=== PATIENT | male | born 1940 | race Caucasian/White ===

== ENCOUNTER → 2017-11-07 | Outpatient (CLI) | payer OTHER | END | disposition home or self-care (01) | LOC: TOM 10:34 | DX: J44.1 Chronic obstructive pulmonary disease with (acute) exacerbation (principal) ==

== ENCOUNTER → 2017-11-28 | Outpatient (CLI) | payer OTHER | END | disposition home or self-care (01) | LOC: MRI 08:15 → TOM 08:15 → MRI 10:15 | DX: M25.551 Pain in right hip (principal); M25.552 Pain in left hip; M54.5 Low back pain | CPT/HCPCS: 72148; 73721 ==

== ENCOUNTER 2018-03-25 15:00 | Inpatient (IN) | payer OTHER ==
[~2018-03-25] VITALS: Ht 177.8 cm; Wt 95.3 kg
[2018-03-25] MEDS ORDERED: LEVALBUTER1.25 MG/0. IH (15:20)
[2018-03-25] MEDS ORDERED: BUDESONIDE0.25 MG/2 IH (15:21)
[2018-03-25] MEDS ORDERED: MESALAMINE800 MG PO (15:21)
[2018-03-25] MEDS ORDERED: BREO ELLIPTA 21 EACH IH (15:21)
[2018-03-28] MEDS ORDERED: LIPITOR40 MG PO (10:20)
[2018-03-28] MEDS ORDERED: BENZONATATE200 M1 PO (10:21)
[2018-03-28] MEDS ORDERED: LOSARTAN-HCTZ1 EAC2 PO (10:21)
[2018-03-28] MEDS ORDERED: TOPROL XL25 M1 PO (10:23)
[2018-03-28] MEDS ORDERED: CARdura 2MG TABLET PO (10:23)
[2018-03-28] MEDS ORDERED: MEDROL4 MG PO (10:24)
[2018-03-28] MEDS ORDERED: XOPENEX CO1.25 MG/0. IH (10:25)
[2018-03-28] MEDS ORDERED: BREO ELLIPTA 21 EACH IH (10:26)
== END 2018-03-28 11:25 | disposition home or self-care (01) | DRG 190 ==
LOC: ER 15:00 → MEDI 17:47
PROC: 3E0F7GC Introduction of Other Therapeutic Substance into Respiratory Tract, Via Natural or Artificial Opening (ICD-10-PCS; principal; 2018-03-25)
PROC: 4A033R1 Measurement of Arterial Saturation, Peripheral, Percutaneous Approach (ICD-10-PCS; 2018-03-25)
PROC: 4A12X4Z Monitoring of Cardiac Electrical Activity, External Approach (ICD-10-PCS; 2018-03-25)
PROC: B246ZZZ Ultrasonography of Right and Left Heart (ICD-10-PCS; 2018-03-25)
PROC: BW24ZZZ Computerized Tomography (CT Scan) of Chest and Abdomen (ICD-10-PCS; 2018-03-26)
DX: J44.1 Chronic obstructive pulmonary disease with (acute) exacerbation (principal); I50.33 Acute on chronic diastolic (congestive) heart failure; N17.8 Other acute kidney failure; I13.0 Hypertensive heart and chronic kidney disease with heart failure and stage 1 through stage 4 chronic kidney disease, or unspecified chronic kidney disease; Z72.0 Tobacco use; E66.8 Other obesity; G47.33 Obstructive sleep apnea (adult) (pediatric); E09.22 Drug or chemical induced diabetes mellitus with diabetic chronic kidney disease; T38.0X5A Adverse effect of glucocorticoids and synthetic analogues, initial encounter; N18.3 Chronic kidney disease, stage 3 (moderate); E78.4 Other hyperlipidemia

== ENCOUNTER 2018-06-17 15:15 | Emergency (ER) | payer OTHER ==
[~2018-06-17] VITALS: Ht 170.2 cm; Wt 95.3 kg
[~2018-06-17 15:15] MED LIST: BENZONATATE200 M1 PO; BREO ELLIPTA 21 EACH IH; BUDESONIDE0.25 MG/2 IH; CARdura 2MG TABLET PO; LEVALBUTER1.25 MG/0. IH; LIPITOR40 MG PO; LOSARTAN-HCTZ1 EAC2 PO; MEDROL4 MG PO; MESALAMINE800 MG PO; TOPROL XL25 M1 PO; XOPENEX CO1.25 MG/0. IH
== END 2018-06-17 21:30 | disposition home or self-care (01) ==
LOC: ER 15:15 → CPU-OBS 15:27 → ER 21:30
DX: R07.89 Other chest pain (principal)
CPT/HCPCS: G0378; G0379; 93005

== ENCOUNTER 2018-10-22 10:54 | Emergency (ER) | payer OTHER ==
[~2018-10-22] VITALS: Ht 170.2 cm; Wt 90.7 kg
[2018-10-22] MEDS ORDERED: ULTRACET PO (15:30)
== END 2018-10-22 16:12 | disposition home or self-care (01) ==
LOC: ER 10:54
DX: K57.92 Diverticulitis of intestine, part unspecified, without perforation or abscess without bleeding (principal); K59.09 Other constipation

== ENCOUNTER 2018-11-15 11:53 | Inpatient (IN) | payer OTHER ==
[~2018-11-15] VITALS: Ht 177.8 cm; Wt 95.3 kg
[~2018-11-15 11:53] MED LIST changes: +ULTRACET PO
--- NOTE | 2018-11-15 11:57 | NUR ---
PTE ALERTA Y ORIENTADO X 3 ESFERAS QUIEN REFIERE DOLOR DE PECHO EN LADO RT DESDE HACE 4 YOUNG,FALTA DE APETITO Y DIARREAS DESDE HACE 6 MESES POR COLITIS.
[2018-11-15] MEDS ORDERED: ALPHAGAN P5 ML (12:01)
--- NOTE | 2018-11-15 12:15 | NUR ---
SE REALIZA EKG Y SE MUESTRA A DR BAUTISTA.
--- NOTE | 2018-11-15 12:55 | NUR ---
EVALUADO POR EL SE ORIENTA SOBRE TRATAMIENTO MEDICO Y LA UNIDAD , ALERTA, ORIENTADO POR FEI. CONECTADO A MONITOR CARDIACO. SE LE EXTRAEN MUESTRAS DE [facility] Y SE ENVIAN AL LABORATORIO. SE MANTIENE EN OBSERVACION.
[2018-11-17] MEDS ORDERED: MESALAMINE800 MG PO (09:16)
[2018-11-17] MEDS ORDERED: LEVALBUTER1.25 MG/3 IH (09:16)
[2018-11-17] MEDS ORDERED: MESALAMINE4 GM/60 M1 (09:17)
[2018-11-17] MEDS ORDERED: RELPAX40 MG PO (09:18)
== END 2018-11-21 13:48 | disposition home or self-care (01) | DRG 194 ==
LOC: ER 11:53 → MEDJ 18:56
PROVIDERS: ADMIT Internal Medicine
PROC: BW24ZZZ Computerized Tomography (CT Scan) of Chest and Abdomen (ICD-10-PCS; principal; 2018-11-16)
PROC: BW28ZZZ Computerized Tomography (CT Scan) of Head (ICD-10-PCS; 2018-11-18)
PROC: BW40ZZZ Ultrasonography of Abdomen (ICD-10-PCS; 2018-11-20)
DX: J18.1 Lobar pneumonia, unspecified organism (principal); J44.1 Chronic obstructive pulmonary disease with (acute) exacerbation; K51.80 Other ulcerative colitis without complications; N17.8 Other acute kidney failure; I12.9 Hypertensive chronic kidney disease with stage 1 through stage 4 chronic kidney disease, or unspecified chronic kidney disease; N18.3 Chronic kidney disease, stage 3 (moderate); D72.828 Other elevated white blood cell count; M51.26 Other intervertebral disc displacement, lumbar region; K57.30 Diverticulosis of large intestine without perforation or abscess without bleeding; E78.49 Other hyperlipidemia; E11.319 Type 2 diabetes mellitus with unspecified diabetic retinopathy without macular edema; E66.8 Other obesity; G47.33 Obstructive sleep apnea (adult) (pediatric); Z72.0 Tobacco use

== ENCOUNTER 2018-12-31 10:18 | Outpatient (CLI) | payer OTHER ==
[~2018-12-31 10:18] MED LIST changes: +ALPHAGAN P5 ML; +LEVALBUTER1.25 MG/3 IH; +MESALAMINE4 GM/60 M1; +RELPAX40 MG PO
== END 2018-12-31 17:00 | disposition home or self-care (01) ==
LOC: MRI 10:18
DX: M54.17 Radiculopathy, lumbosacral region (principal)
CPT/HCPCS: 72148

== ENCOUNTER 2019-02-27 10:05 | Outpatient (CLI) | payer OTHER | END 2019-02-27 13:22 | disposition home or self-care (01) | LOC: MRI 10:05 | DX: M25.551 Pain in right hip (principal); M25.552 Pain in left hip; M54.5 Low back pain | CPT/HCPCS: 72148; 73718 ==

== ENCOUNTER 2019-03-06 09:33 | Outpatient (CLI) | payer OTHER | END 2019-03-06 10:48 | disposition home or self-care (01) | LOC: RAD 09:33 | DX: M54.5 Low back pain (principal) ==

== ENCOUNTER → 2019-03-06 15:29 | Outpatient (CLI) | payer OTHER | END | disposition home or self-care (01) | LOC: LAB 15:29 | DX: E11.9 Type 2 diabetes mellitus without complications (principal); I10 Essential (primary) hypertension; N39.8 Other specified disorders of urinary system; D64.89 Other specified anemias; E78.2 Mixed hyperlipidemia; E55.9 Vitamin D deficiency, unspecified; R82.6 Abnormal urine levels of substances chiefly nonmedicinal as to source ==

== ENCOUNTER → 2019-04-02 | Outpatient (CLI) | payer OTHER | END | disposition home or self-care (01) | LOC: SONOGRAMA 09:06 | DX: I10 Essential (primary) hypertension (principal) ==

== ENCOUNTER 2019-09-03 09:29 | Outpatient (CLI) | payer OTHER | END 2019-09-03 10:00 | disposition home or self-care (01) | LOC: NUCLEAR 09:29 | DX: M81.0 Age-related osteoporosis without current pathological fracture (principal) ==

== ENCOUNTER → 2019-09-10 10:06 | Outpatient (CLI) | payer OTHER | END | disposition home or self-care (01) | LOC: MRI 12-31 11:15 → LAB 10:06 | DX: E11.9 Type 2 diabetes mellitus without complications (principal); I10 Essential (primary) hypertension; E03.8 Other specified hypothyroidism; D68.8 Other specified coagulation defects; J44.9 Chronic obstructive pulmonary disease, unspecified ==

== ENCOUNTER → 2020-01-22 09:05 | Outpatient (CLI) | payer OTHER | END | disposition home or self-care (01) | LOC: EKG 09:05 | PROVIDERS: ATTEND Internal Medicine Cardiovascular Disease | DX: I10 Essential (primary) hypertension (principal) ==

== ENCOUNTER → 2020-03-18 11:47 | Outpatient (CLI) | payer OTHER | END | disposition home or self-care (01) | LOC: LAB 11:47 | PROVIDERS: ATTEND Internal Medicine Gastroenterology | DX: K52.89 Other specified noninfective gastroenteritis and colitis (principal) ==

== ENCOUNTER → 2020-03-25 | Outpatient (CLI) | payer OTHER | END | disposition home or self-care (01) | LOC: TOM 07:01 | PROVIDERS: ATTEND Internal Medicine Gastroenterology | DX: R10.84 Generalized abdominal pain (principal); R10.31 Right lower quadrant pain ==

== ENCOUNTER → 2020-04-13 | Outpatient (CLI) | payer OTHER | END | disposition home or self-care (01) | LOC: RX STUDY 04-05 10:00 | PROVIDERS: ATTEND Internal Medicine Gastroenterology | DX: R10.13 Epigastric pain (principal); K21.9 Gastro-esophageal reflux disease without esophagitis ==

== ENCOUNTER → 2020-04-28 | Outpatient (CLI) | payer OTHER | END | disposition home or self-care (01) | LOC: TOM 04-27 10:15 | DX: M48.05 Spinal stenosis, thoracolumbar region (principal); M54.5 Low back pain ==

== ENCOUNTER 2020-07-06 14:56 | Outpatient (CLI) | payer OTHER | END 2020-07-06 22:00 | disposition home or self-care (01) | LOC: PPH VACUNA 14:56 | DX: Z23 Encounter for immunization (principal) ==

== ENCOUNTER → 2020-08-10 | Outpatient (CLI) | payer OTHER | END | disposition home or self-care (01) | LOC: RAD 10:21 | DX: M43.25 Fusion of spine, thoracolumbar region (principal); M54.5 Low back pain ==